=== PATIENT | female | born 1955 | race Caucasian/White ===

== ENCOUNTER 2017-12-01 09:44 | Day surgery (SDC) | payer OTHER ==
[2017-12-01] MEDS ORDERED: FAMOTIDINE 20 MG TAB PO ONE (09:49)
[2017-12-01] MEDS ORDERED: DIAZEPAM 5 MG TAB PO ONE (09:49)
[2017-12-01] MEDS ORDERED: ASPIRIN EC 325 MG TAB PO ONE (09:49)
[2017-12-01] MEDS ORDERED: diphenhydrAMINE 25 MG CAP PO ONE (09:49)
[2017-12-01] MEDS ORDERED: NS 1,000 ML IV ONE (09:49)
--- NOTE | 2017-12-01 10:12 | CPEKG ---
Heart Rate: 81 RR Interval: 741 P-R Interval: 176 QRSD Interval: 70 QT Interval: 364 QTC Interval: 423 P Bedford: 68 QRS Bedford: 14 T Wave Bedford: 20 EKG Severity - BORDERLINE ECG - EKG Impression: SINUS RHYTHM EKG Impression: BORDERLINE T ABNORMALITIES, ANTERIOR LEADS Electronically Signed By: Geoff Morris 01-Dec-2017 14:14:37
[2017-12-01 10:27] LABS: PLATELET COUNT 317 10^3/uL (150-400)
[2017-12-01 10:40] LABS: INR 0.88 (0.83-1.16); PROTIME(PATIENT) 12.2 SEC (12.0-15.0)
[2017-12-01] MEDS ORDERED: MIDAZOLAM 2 MG/2 ML VIAL ONE ×2 (12:59→13:42)
[2017-12-01] MEDS ORDERED: LIDOCAINE 1% 300 MG/30 ML SDV ONE (12:59)
[2017-12-01] MEDS ORDERED: fentaNYL 100 MCG/2 ML INJ ONE ×2 (12:59→13:42)
[2017-12-01] MEDS ORDERED: IOPAMIDOL (ISOVUE-370) 150 ML BTL IV ONE (12:59)
--- NOTE | 2017-12-01 13:29 | PDPROPOC ---
Sedation Plan of Care Sedation Plan of Care: vital signs stable, mental status noted, patient educated of risks, benefits, alternatives, patient can tolerate sedation ASA Classification: ASA 2 Planned drugs: fentanyl, midazolam Mallampati Score: Class 3 Mallampati Reference Image: Patient passed 3-3-2 rule?: Yes
--- NOTE | 2017-12-01 13:29 | PDHPUP ---
History & Physical Update H&P update statement: This history and physical update is based on an assessment of the patient which was completed after admission or registration (within 24 hours), but prior to the surgery/procedure. H&P update: H&P reviewed & patient examined, no change in patient's condition since H&P completed
[2017-12-01] MEDS ORDERED: ATROPINE SULFATE 1 MG/10 ML SYR IVP PRN (14:22)
[2017-12-01] MEDS ORDERED: ONDANSETRON 4 MG/2 ML VIAL IVP PRN (14:22)
[2017-12-01] MEDS ORDERED: NITROGLYCERIN 0.4 MG BTL SL PRN (14:22)
--- NOTE | 2017-12-01 14:29 | PDDXCAT ---
Diagnostic Cath Note - . Date: 12/01/17 Electrician Assistant: Danny Indication: other (CAD with h/o prior PCIs, chest pain, and dyspnea on exertion) - Procedure Access: right groin Procedure: left heart catheterization, coronary angiography, left ventriculogram , right heart catheterization - Materials Left Heart Cath size: 6F Left Heart Cath materials: standard multipack (JL4, JR4, pigtail) Right Heart Cath size: 7F Right Heart Cath materials: PWP catheter - Findings-Left Heart Catheterization LM: Normal. LAD: Fluoroscopy reveals a lengthy stented segment from the ostium to mid-LAD. Angiography reveals that the stented segment is widely patent. The remainder of the LAD exhibits mild irregularities. There is a bifurcating second diagonal branch with diffuse moderate disease containing areas up to 50-60% stenosis. LCX: The circumflex and its obtuse marginal branches demonstrate scattered areas of mild to moderate atherosclerosis less than 40%. RCA: Fluoroscopy demonstrates the presence of a previously stented segment in the proximal RCA. Angiography reveals that the stented segment is widely patent. The mid-RCA contains mild atherosclerosis of approximately 20-30%. EDP: 24 mmhg LVEF: 50% Wall motion: Focal anterolateral hypokinesis. - Findings-Right Heart Catheterization RA: 14 mmHg RV: 38/12 mmHg PA: 38/20/28 mmHg O2 sat 45.4% PAOP: 22 mmHg AO: 113/65/85 mmHg O2 sat 95.2% Complications: None Estimated blood loss: <50ml Closure method: manual pressure Assessment: 1) Preserved left ventricular systolic function. 2) CAD as described above. 3) Borderline hypertension. Plan: Today's angiographic images were compared to a study from October of 2015. There is no significant progression of her CAD. At this point, the worst of her atherosclerosis is confined to relatively small and diffusely diseased branch vessels. Will continue medical therapy with consideration for addition of a long -acting nitrate.
[2017-12-02] MEDS ORDERED: ISOSORBIDE MONONITRATE 30 MG TAB.SR PO SCH (09:00)
== END 2017-12-01 17:00 | disposition home or self-care (01) ==
LOC: FCATH 09:44
PROVIDERS: ATTEND Internal Medicine Interventional Cardiology
DX: I25.119 Atherosclerotic heart disease of native coronary artery with unspecified angina pectoris (principal); I12.9 Hypertensive chronic kidney disease with stage 1 through stage 4 chronic kidney disease, or unspecified chronic kidney disease; N18.3 Chronic kidney disease, stage 3 (moderate); J44.9 Chronic obstructive pulmonary disease, unspecified; E78.5 Hyperlipidemia, unspecified; J45.40 Moderate persistent asthma, uncomplicated; E66.9 Obesity, unspecified; Z68.37 Body mass index [BMI] 37.0-37.9, adult; G47.30 Sleep apnea, unspecified; F17.210 Nicotine dependence, cigarettes, uncomplicated; Z79.82 Long term (current) use of aspirin; Z82.49 Family history of ischemic heart disease and other diseases of the circulatory system; Z95.5 Presence of coronary angioplasty implant and graft
CPT/HCPCS: C1760; J1200; J1644; J2250; J3010; Q9967

== ENCOUNTER 2018-11-22 13:40 | Inpatient (IN) | payer OTHER ==
--- NOTE | 2018-11-22 14:08 | EDPHY ---
H & P Stated Complaint: Pt. states has been SOB,nausea,anemic x24hrs,has been intermittent 07/15 - Medical/Surgical History Hx Asthma: Yes Hx Chronic Respiratory Disease: Yes Hx Diabetes: No Hx Cardiac Disease: Yes Hx Renal Disease: No Hx Cirrhosis: No Hx Alcoholism: No Other PMH: PA/w stents, dystonia, HTN, PTSD/anxiety, anemia,herniated L4-L5 - Social History Smoking Status: Heavy smoker Time Seen by Provider: 11/22/18 13:43 HPI/ROS: Chief Complaint: Shortness of breath, chest tightness, anemia HPI: 63-year-old woman with a history of coronary artery disease status post stenting times x 15, COPD, diabetes, anemia with sent to the emergency department by Dr. Paz, cardiology obstructive from his office. Patient has been complaining of worsening shortness of breath the last 2 months. She saw her primary care physician was told that she was anemic. They had ordered a colonoscopy. Patient was seen by gastroenterology who said that she needed a Cardiology approval before undergoing colonoscopy. She went to see Dr. Paz today for further evaluation. He sent her directly here. Patient has been having increasing shortness of breath, worse on exertion. No cough. Does have chest tightness about 3 times a week which is worsening as well. She has been taking her diuretics as prescribed. Has had some increasing leg swelling for the last couple of years. She has significant dyspnea on exertion is no longer able to climb stairs. No palpitations, no orthopnea. Denies melena. Patient states she got quite short of breath walking from the car into the building. ROS: 10 systems were reviewed and were negative except those elements noted in the HPI. PMH: Coronary artery disease, diabetes, COPD Social History: Positive smoking, no alcohol, no recreational drug use Family History: non-contributory Physical Exam: Gen: Awake, Alert, frail, fatigued HEENT: Nose: no rhinorrhea Eyes: PERRLA, EOMI Mouth: Moist mucosa Neck: Supple, no JVD Chest: nontender, lungs clear to auscultation Heart: S1, S2 normal, no murmur Abd: Soft, non-tender, no guarding Back: no CVA tenderness, no midline tenderness Ext: 1+ pitting edema, non-tender Skin: no rash Neuro: CN II-XII intact, Sensation grossly intact, Strength 5/5 in bilateral upper and lower extremities (Ronn Coffey) Constitutional: Initial Vital Signs Temperature (C) 36.8 C 11/22/18 13:53 Heart Rate 76 11/22/18 13:53 Respiratory Rate 22 H 11/22/18 13:53 Blood Pressure 119/62 11/22/18 13:53 O2 Sat (%) 97 11/22/18 13:53 O2 Delivery Mode Room Air Allergies/Adverse Reactions: bupropion HCl [From Wellbutrin] Allergy (Verified 11/22/18 13:53) suicidal morphine Allergy (Verified 11/22/18 13:53) Other-Enter Comments sertraline HCl [From Zoloft] Allergy (Verified 11/22/18 13:53) Other-Enter Comments Sulfa (Sulfonamide Antibiotics) Allergy (Verified 11/22/18 13:53) GI upset venlafaxine HCl [From Effexor] Allergy (Verified 11/22/18 13:53) Suicidal Anti-Depresants Allergy (Uncoded 11/22/18 13:53) Suicidal Ideation Nuc Stess Test Tracer Allergy (Uncoded 11/22/18 13:53) Home Medications: Medication Instructions Recorded ALPRAZolam [Xanax 1 MG (*)] 1 mg PO TID 12/01/17 Acetamn/Diphenhydramine 500/25 1 each PO HS 12/01/17 [Tylenol PM (*)] Aspirin [Aspirin 325 mg (*)] 325 mg PO DAILY 12/01/17 Clopidogrel Bisulfate [Plavix (*)] 75 mg PO DAILY 12/01/17 Docusate Sodium [Colace 100 MG (*)] 200 mg PO HS 12/01/17 Furosemide [Lasix 20 MG (*)] 20 mg PO DAILY 12/01/17 Ipratropium [Atrovent Hfa (*)] 2 puffs IH QID PRN 12/01/17 Isosorbide Mononitrate [Imdur 30 30 mg PO DAILY #30 tab.sr 12/01/17 mg (*)] LORazepam [Ativan 2 mg tab] 2 mg PO DAILY PRN 12/01/17 Levothyroxine [Synthroid 75 mcg 75 mcg PO DAILY06 12/01/17 (*)] Metoprolol Tartrate [Lopressor 25 25 mg PO BID 12/01/17 mg (*)] Multivitamins [Multivitamin (*)] 1 each PO DAILY 12/01/17 Pantoprazole Sodium [Protonix 40mg 40 mg PO DAILY 12/01/17 (*)] Ramipril [Altace] 10 mg PO HS 12/01/17 Rosuvastatin Calcium [Crestor 40mg 40 mg PO HS 12/01/17 (*)] Seretid 125/25 Inhaler 2 puffs IH BID 12/01/17 Spironolactone [Aldactone 25 MG 25 mg PO DAILY 12/01/17 (*)] clonazePAM [klonoPIN (*)] 1 mg PO HS 12/01/17 Tramadol HCl 50 mg PO Q4-6PRN PRN #20 tablet 07/18/18 methylPREDNISolone [Medrol Dose 4 mg PO DAILY #1 each 07/18/18 Farhad] Medical Decision Making - Diagnostics EKG Interpretation: ECG time 1:53 p.m.. Sinus rhythm with a rate of 76, normal axis, normal intervals, nonspecific T-wave abnormalities in anterior leads, no acute ST or T- wave ischemic changes. (Ronn Coffey) ED Course/Re-evaluation: Patient is presenting with increasing shortness of breath for the last 2 months. She is obviously short of breath at rest here. She is not tachycardic. She is not hypoxemic. No acute changes on her ECG. There is some reports of anemia, however her H&H are 9.7 and 34 here which is not significantly changed from multiple prior tests that I have reviewed. With a history of coronary artery disease and some unstable angina features I am concerned more about a cardiac problem as opposed to a blood loss problem. Awaiting her troponin and chemistry results. Patient will require admission for further evaluation given the severity of her dyspnea. Patient's chemistry and troponin are unremarkable. I have discussed with Dr. Dietz, hospitalist. She will admit to her service for further evaluation of unstable angina. (Ronn Coffey) Other Provider: The patient was seen by the day time shift physician and arrangements have been made for transfer due to subacute accelerating angina, ACS, and the patient was to go to the hospital by ambulance. However, the nurse has informed me that she refuses such as she has issues at home that she must first take care of. Yes indeed she plans be admitted to the hospital and will follow through, hopefully. Nonetheless she simply cannot go directly to the hospital. 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 Thus she feels unable to go to the hospital immediately at this point in time. I have suggested that she make some calls to see if somebody can help out and, yes , she plans to do so calling her neice, however that will not be sufficient for her to be feeling comfortable to go to the hospital in immediately. I expressed concern that something may happen to her that she has a known cardiac condition which is of evidently worsening in the last week or 2. We discussed my worrisome concerns for her regarding sudden or collapse with stroke as well as hurting others should she drive, and she is aware such. We will continue to work with her regarding admission should she show up at the hospital and arranged for her direct admission. However, it is evident that that will whe will not kole there for as long as 6-8 hours. She has been warned. We also discussed the AC IV placement as to whether it should remain in place. (Alvarez Boss) - Data Points Laboratory Results: 11/22/18 11/22/18 14:23 14:23 POC Sodium 139 mEq/L mEq/L (135-145) POC Potassium 3.8 mEq/L mEq/L (3.3-5.0) POC Chloride 103.0 mEq/L mEq/L (97-110) POC Total CO2 30 mEq/L mEq/L (22-31) POC BUN 8 mg/dL mg/dL (7-23) POC Creatinine 1.0 mg/dL mg/dL (0.6-1.0) POC Glucose 90 mg/dL mg/dL (70-100) POC Calcium 9.8 mg/dL mg/dL (8.5-10.4) POC Troponin I 0.01 ng/mL ng/mL (0.00-0.08) Point of Care Test Results: CBC CBC Collection Date 11/22/18 CBC Collection Time 14:15 WBC 5.69 RBC 4.38 HGB 9.7 HCT 33.4 PLT 334 Neut # 2.98 Neut 52.3 LYMPH # 1.99 LYMPH 35 MCV 76.3 Chemistry 11/22/18 11/22/18 14:23 14:23 POC Sodium 139 mEq/L mEq/L (135-145) POC Potassium 3.8 mEq/L mEq/L (3.3-5.0) POC Chloride 103.0 mEq/L mEq/L (97-110) POC Total CO2 30 mEq/L mEq/L (22-31) POC BUN 8 mg/dL mg/dL (7-23) POC Creatinine 1.0 mg/dL mg/dL (0.6-1.0) POC Glucose 90 mg/dL mg/dL (70-100) POC Calcium 9.8 mg/dL mg/dL (8.5-10.4) POC Troponin I 0.01 ng/mL ng/mL (0.00-0.08) Departure - Departure Disposition: [facility] Inpatient Acute Clinical Impression: Unstable angina Condition: Fair
[2018-11-22] MEDS ORDERED: ACETAMINOPHEN 325 MG TAB PO PRN (20:28)
[2018-11-22] MEDS ORDERED: ONDANSETRON 4 MG/2 ML VIAL IVP PRN (20:28)
--- NOTE | 2018-11-22 22:26 | GHP ---
[f rep st] HISTORY AND PHYSICAL DATE OF ADMISSION: 11/22/2018 CHIEF COMPLAINT: 1. Chest pain. 2. Shortness of breath. HISTORY: Jena Mcwilliams is a 63-year-old female who started with nausea and inability to take p.o. around Thanksgiving. She had a CT scan in the emergency room that showed a thickened sigmoid colon. She was diagnosed with an iron-deficiency anemia. She had an outpatient EGD and colonoscopy schedu led. She has never had any previous endoscopy in the past. Upon arriving to the GI office they foun d out she was having chest pain and shortness of breath and would not do the colonoscopy until after cardiac clearance. She saw Dr. Paz in the office today and was sent immediately to the emergency room for more urgent evaluation of her chest pain and shortness of breath. Her chest pain is left sided under her breast, worse with pressure to the rib, nonpleuritic, continuo us. She has not noticed a change with exertion, although she has recently been immobilized due to a herniated disk. She has a pulse oximeter at home and has noticed oxygen saturations dipping into the 80s, which has never been a problem before. She has new lower extremity edema. She has PND and ort hopnea and has been sleeping on her stomach. She denies any fever or cough. She has been nauseated and has been barely able to eat anything for months. She has been living only on crushed ice and Coca Cola. Despite this, she has not lost any weight. Her stools have changed and they are now loose, b ut no blood. She has had a persistent right lower quadrant pain for the last couple of months. PAST MEDICAL HISTORY: 1. Coronary disease status post multiple stents in the past. Her last cardiac catheterization in ril 2017 showed her LAD stent was patent, 60% blockage of the 2nd diagonal, circ blockage less than 4 0%. Right coronary artery stent was patent. There was no change compared to cardiac catheterization in 2016. 2. COPD. 3. Diabetes. 4. Hypertension. 5. Asthma. 6. Obesity. 7. Obstructive sleep apnea. 2 L at night although she has never had a formal sleep study. 8. L3-4 disk herniation with ongoing back pain. 9. Iron-deficiency anemia and thickened sigmoid colon on CAT scan in June. Workup still pending . PAST SURGICAL HISTORY: Hysterectomy. MEDICATIONS: Please see computerized record for full detailed list. ALLERGIES: To bupropion, morphine, sertraline, sulfa, Effexor. SOCIAL HISTORY: She smokes a half a pack per day. No alcohol. 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 REVIEW OF SYSTEMS: Complete review of systems obtained. Review of systems negative regarding consti tutional, HEENT, GI, pulmonary, vascular, , hematology, skin, musculoskeletal, endocrine, psychiatr ic, positives as in HPI. FAMILY HISTORY: Reviewed and noncontributory to presenting complaint. PHYSICAL EXAMINATION: GENERAL: Well-developed, well-nourished female. Dyspneic with conversation. VITAL SIGNS: Temperature is 37.0, pulse 83, respirations 22, blood pressure 124/94, saturating 96% on room air. EYES: Normal conjunctivae. Pupils react to light. ENT: Normal ears and nose. Heari ng intact. Normal teeth. Oropharynx moist. NECK: Trachea midline. No thyromegaly. CHEST: Tricia l effort. Lungs are clear to auscultation bilaterally. CARDIOVASCULAR: Regular rhythm. No murmur. 2+ lower extremity edema. ABDOMEN: Soft, nontender. No hepatosplenomegaly. SKIN: Warm, dry, in tact without rash. MUSCULOSKELETAL: No cyanosis or clubbing. Strength 5/5, upper and lower extremi ties. NEUROLOGIC: Cranial nerves intact. Normal sensation to light touch. PSYCHIATRIC: Alert and oriented x3. Normal affect. Normal judgment and insight. Normal memory. LABORATORIES: White count 5.69, hematocrit 33.4, platelets 334. Sodium 139, potassium 3.8, chloride 103, bicarb 30, BUN 18, creatinine 1.0, glucose . Troponins negative. EKG viewed by me. My personal interpretation is normal sinus rhythm. Anterior T-wave inversions. This case was perso jony discussed with Dr. Cristóbal Coffey in the emergency room regarding ER course and medical records revi ew. CAT scan from June in the emergency room did have some concerning signs of sigmoid colon thi ckening, possible renal mass, ovarian cysts. ASSESSMENT AND PLAN: 1. Chest pain and shortness of breath. She did not get a chest x-ray in the emergency room. I will order that now. If this is negative, would consider a CT angiogram of the chest to rule out pulmona ry embolism. Will follow serial troponins and EKGs. She had a cardiac catheterization not that long ago in 2018 that was no change from 2016. Could consider an ischemic evaluation, but her chest pain is reproducible to palpation and atypical. A bigger issue for her, I think, is the possibility of a gastrointestinal malignancy. I think she probably needs a gastroenterology workup prior to consider ing any stent procedure. We will check an echocardiogram. 2. Iron-deficiency anemia with colonic thickening on CAT scan last June. Outpatient colonoscopy not yet done secondary to chest pain and shortness of breath. This is highly concerning for gastroi ntestinal malignancy. She has barely been able to take p.o. for months. Will add an abdominal x-ray to her chest x-ray to rule out obstruction. Would consider inpatient gastroenterology consultation. Consider repeat CT scan of the abdomen. 3. L3-4 disk herniation with ongoing low back pain. This has caused significant reduced mobility. This would put her at increased risk for pulmonary embolism and deep vein thrombosis. Could consider lower extremity ultrasounds for working up her edema. 4. Obesity. BMI 38 with probable obstructive sleep apnea. She wears 2 L at night. She has never h ad a sleep study. 5. Code status is full. 6. Admission status. Will admit to observation. Reevaluate tomorrow regarding ongoing need for hos pitalization. 7. Deep vein thrombosis prophylaxis. She is high risk. Will place her on subcu Lovenox. /[id number]/MODL
[2018-11-22] MEDS: RAMIPRIL 5 MG CAP PO SCH (23:43)
[2018-11-22] MEDS: METOPROLOL TARTRATE 25 MG TAB PO SCH (23:43)
[2018-11-22] MEDS: ACETAMN/DIPHENHYDRAMINE 500/25MG TAB PO SCH (23:43)
[2018-11-22] MEDS: DOCUSATE SODIUM 100 MG CAP PO SCH (23:43)
[2018-11-22] MEDS: PANTOPRAZOLE SODIUM 40 MG TAB PO SCH (23:43)
[2018-11-22] MEDS: clonazePAM 1 MG TAB PO SCH (23:44)
[2018-11-22] MEDS: ROSUVASTATIN CALCIUM 40 MG TAB PO SCH (23:44)
[2018-11-22] MEDS: ALPRAZolam 1 MG TAB PO SCH (23:48)
[2018-11-23 04:28] LABS: PLATELET COUNT 305 10^3/uL (150-400)
[2018-11-23] MEDS: ALPRAZolam 1 MG TAB PO SCH ×4 (08:19→20:35)
[2018-11-23] MEDS: LEVOTHYROXINE 75 MCG TAB PO SCH (08:20)
[2018-11-23] MEDS ORDERED: ENOXAPARIN 40 MG/0.4 ML SYR SC SCH (09:00)
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
[2018-11-23] MEDS: CLOPIDOGREL BISULFATE 75 MG TAB PO SCH (09:38)
[2018-11-23] MEDS: METOPROLOL TARTRATE 25 MG TAB PO SCH ×2 (09:38→22:30)
[2018-11-23] MEDS: RAMIPRIL 5 MG CAP PO SCH ×2 (09:43→22:30)
[2018-11-23] MEDS: FUROSEMIDE 20 MG TAB PO SCH (09:44)
[2018-11-23] MEDS: SPIRONOLACTONE 25 MG TAB PO SCH (09:45)
[2018-11-23] MEDS: PANTOPRAZOLE SODIUM 40 MG TAB PO SCH (09:45)
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
[2018-11-23] MEDS ORDERED: IOPAMIDOL (ISOVUE-370) 150 ML BTL IV ONE (12:51)
--- NOTE | 2018-11-23 13:11 | HOSPPROG ---
Hospitalist Progress Note Assessment/Plan: 63yo F with CAD, iron deficiency anemia here from clinic with chest discomfort. #Chest pain: Atypical. No e/o active ischemia. TTE unchanged. CTA neg for PE. - Would like to obtain lexiscan stress but patient reports allergy to nuclear tracer - Will discuss with cardiology team re: ischemic eval. If needs angiogram, would be prudent to eval source of blood loss first #Iron deficiency anemia with thickened sigmoid colon: This has not been endoscopically evaluated. H/H lower than prior. - Consult GI in AM for colonoscopy - May need prbc transfusion this admission #Multiloculated left adnexal cystic lesion: Stable since 06/2018. Previously had US that was unable to visualize. - Hold off on advanced imaging for now #CAD: LAD and RCA stents. Had [facility] 11/2017 with patent stents, moderate branch vessel disease. - Continue plavix, statin, beta bar - Taken off aspirin w/GALA #L3-4 disk herniation with low back pain: Causing significantly reduced mobility. #RML pulmonary nodule: 7mm. Needs repeat chest CT 6-12 months. #Left renal mass: Stable, most compatible with hemorrhagic cyst. No further work up needed. #Nocturnal hypoxia: Wears 2L. Needs outpatient sleep study. #HTN: Home meds #Anxiety: Continue home benzos VTE ppx: LMWH Diet: NPO at midnight for possible procedure/study Code: full Dispo: Switch to inpatient Plan for tomorrow: Discuss with GI and cardiology teams re: timing of GI and cardiac evaluations. Subjective: Attempted to see patient twice today without success. Didn't get to formally discuss/evaluate until late this afternoon. Had twinge of chest discomfort/pressure this AM but none since. This pain has been occurring for several weeks and been increasing in intensity. Has been miserable recently. Hasn't noticed any blood in stool or melena. Occasionally has RLQ pain. Objective: Vital Signs Temp Pulse Resp BP Pulse Ox 36.7 C 72 23 H 103/63 98 11/23/18 11:26 11/23/18 11:26 11/23/18 11:26 11/23/18 11:26 11/23/18 11:26 Laboratory Results 11/23/18 03:50 11/23/18 03:50 11/22/18 11/23/18 11/24/18 05:59 05:59 05:59 Intake Total 300 Output Total 400 Balance -100 - Physical Exam Constitutional: no apparent distress, obese Eyes: PERRL, anicteric sclera Ears, Nose, Mouth, Throat: moist mucous membranes, hearing normal, ears appear normal, no oral mucosal ulcers Cardiovascular: regular rate and rhythym, no murmur, rub, or gallop, edema ( trace BLE) Respiratory: no respiratory distress, no rales or rhonchi, clear to auscultation Gastrointestinal: normoactive bowel sounds, soft, non-tender abdomen, no palpable masses Genitourinary: no bladder fullness, no bladder tenderness, no renal bruits Skin: no rashes or abrasions, no fluctuance, no induration Musculoskeletal: generalized weakness Neurologic: AAOx3 Psychiatric: interacting appropriately ICD10 Worksheet Patient Problems: Problems Problem Status Onset Unstable angina Acute Right lower quadrant pain Acute Right-sided back pain Acute
--- NOTE | 2018-11-23 13:34 | ECHO ---
[email or web address] [address] Main: [phone] Echocardiography Examination Transthoracic Name: GENET NEUMANN MR#: [id number] Study Date: 11/23/2018 Study Time: 10:23 AM Date of : 1955 Age: 63 year(s) Height: 157.5 cm (62 in.) Weight: 97.52 kg (215 lb.) BSA: 1.97 m2 Gender: Female Examination: Echo Contrast: Image Quality: Adequate Rhythm: Heart Rate: BP: 101 mmHg/65 mmHg Indication: Shortness of breath Procedure Staff Referring Physician: Technology [employer] Engineering Teacher: Donna Jin [facility] Reading Physician: Terence Massey MD Requesting Provider: Indication: Shortness of breath Measurements Chambers AV/MV Label Value Normal Value Label Value Normal Value EF lower range (%) 50 % AV PGmax 8 mmHg EF upper range (%) 55 % AV PGmean 5 mmHg IVSd, 2D 1 cm (0.6cm - 1.1cm) AV Vmax 1.4 m/s LVDd, 2D 4.7 cm (3.9cm - 5.3cm) ISMAEL D (continuity eq. 2.2 cm2 LVDs, 2D 3 cm (2.1cm - 4cm) VTI) LVEF, 2D 68 % (54% - 74%) MV A Vmax 0.94 m/s LVOT PGmean 2 mmHg MV DT 173 ms LVOT Vmean 0.68 m/s MV E' lateral 0.1 m/s LVOTd 2.1 cm (1.8cm - 2cm) MV E' mean 0.09 m/s LVPWd, 2D 0.9 cm MV E' septal 0.08 m/s RVDd, 2D 2.6 cm (1.9cm - 3.8cm) MV E Vmax 0.83 m/s LA Volume, BP 43 ml (22ml - 52ml) MV E/A 0.88 LADs, 2D 3.2 cm (2.7cm - 3.8cm) MV E/E' lateral 8 LAESV index, BP 21.8 ml/m2 MV E/E' mean 9.22 RA Area 12.1 cm2 MV E/E' septal 10.3 (0.45 - 1.25) Additional Vessels MV PHT 0.05 s Label Value Normal Value MV PHT 54 ms AoAsc 2.5 cm MVA PHT 4.1 cm2 AoRoot, 2D 3 cm (1.4cm - 2.6cm) TV/PV IVC 1.3 cm (1.2cm - 2.3cm) Label Value Normal Value Patient: GENET NEUMANN Study Date: 11/23/2018 Page 1 of 2 10:23 AM PV PGmax 3 mmHg PV Vmax, Caliper 0.87 m/s (0.6m/s - 0.9m/s) Conclusions Overall Conclusions: No pericardial effusion. Preserved left ventricular systolic function ejection fraction 50-55%. Mild mitral regurgitation. Trace aortic regurgitation. Findings Technically difficult exam due to body habitus, limited windows. Left Ventricle: Left ventricle is normal in size. Low normal left ventricular systolic function. EF range is estimated at 50 % - 55 %. Left ventricle wall thickness is normal. Left ventricular diastolic function parameters are normal. No LV hypertrophy. Possible mid inferoseptal, anteroseptal hypokinesis. Right Ventricle: Normal size right ventricle. Right ventricular systolic function is normal. Left Atrium: The left atrium is normal in size. Right Atrium: The right atrium is normal in size. Mitral Valve: Mitral valve appears structurally normal. Mild mitral regurgitation. No mitral valve stenosis. Aortic Valve: Aortic leaflets are structurally normal. Trivial aortic regurgitation is present. There is no aortic stenosis. Aortic leaflets exhibit mild calcification. Tricuspid Valve: Tricuspid valve leaflets are structurally normal. Trivial tricuspid regurgitation. No tricuspid valve stenosis. Pulmonary artery pressure cannot be assessed due to inadequate TR signal. Pulmonic Valve: Pulmonic valve not well visualized. Trivial pulmonic valve regurgitation is present. Aorta: The aortic root size in 2D measures 3.0 cm. The ascending aorta measures 2.5 cm. Aorta Measurements AoRoot, 2D is 3.0 cm. IVC: The inferior vena cava is normal in size. Pericardium: No pericardial effusion. Exam Details Procedure Ordered: Echo Procedure Status: Routine study Image Quality: Adequate Facility Location: Cardiac Echo 1 (No Signature Object) Patient: GENET NEUMANN Study Date: 11/23/2018 Page 2 of 2 10:23 AM [id number]
[2018-11-23] MEDS: TROLAMINE SALICYLATE 85 GM CRTUBE TP SCH (14:09)
[2018-11-24] MEDS: ROSUVASTATIN CALCIUM 40 MG TAB PO SCH (01:42)
[2018-11-24] MEDS: clonazePAM 1 MG TAB PO SCH (01:42)
[2018-11-24] MEDS: PANTOPRAZOLE SODIUM 40 MG TAB PO SCH ×2 (01:42→08:22)
[2018-11-24] MEDS: DOCUSATE SODIUM 100 MG CAP PO SCH (01:42)
[2018-11-24] MEDS: TROLAMINE SALICYLATE 85 GM CRTUBE TP SCH ×2 (02:12→08:14)
[2018-11-24] MEDS: ACETAMN/DIPHENHYDRAMINE 500/25MG TAB PO SCH (02:12)
[2018-11-24] MEDS: SPIRONOLACTONE 25 MG TAB PO SCH (08:17)
[2018-11-24] MEDS: FUROSEMIDE 20 MG TAB PO SCH (08:17)
[2018-11-24] MEDS: CLOPIDOGREL BISULFATE 75 MG TAB PO SCH (08:22)
[2018-11-24] MEDS: LEVOTHYROXINE 75 MCG TAB PO SCH (08:22)
[2018-11-24] MEDS: ALPRAZolam 1 MG TAB PO SCH ×4 (08:22→21:50)
[2018-11-24] MEDS ORDERED: ENOXAPARIN 40 MG/0.4 ML SYR SC SCH (09:00)
--- NOTE | 2018-11-24 09:56 | PDMN ---
Medical Necessity Medical [place] [facility] [place]- , iron deficiency or unspecified A-1 day: pt presents with N- inability to take PO, CP , SOB, O2 sats dropping at home, lower extremity edema. PND, orthopnea, PMHx: CAD, mult stents in the past. COPD, DM, HTN, asthma, obesity, BERTA, back pain, iron-def. anemia thickened colon on CAT scan- H/H 8. status changed to INPT 11/23 for ongoing med nec. further monitoring , eval needed for iron def. anemia with CP.
[2018-11-24] MEDS: RAMIPRIL 5 MG CAP PO SCH (11:20)
[2018-11-24] MEDS: METOPROLOL TARTRATE 25 MG TAB PO SCH (11:22)
--- NOTE | 2018-11-24 11:22 | PDCARPN ---
Cardiology Progress Note Chief Complaint: Patient with weakness and fatigue today Assessment/Plan: Assessment: Patient is a 63 y/o female, seen by me in clinic on (11-22-18) with complaints at that time of fatigue and chest tightness (but no 'chest pain'), who continues to appreciate fatigue and weakness. History of CRI, HTN, HLP, COPD/asthma, BERTA, anxiety/depression, and CAD with PCI to LAD and RCA with notable patency by angiography in 12-13. Moderate branch vessel CAD was noted, and recommendations at that time were to continue therapy on ASA, Plavix, statins, and beta blockers (which the patient has reportedly done). No osmel chest pains have been noted today. Lethargy is more significant than that which was noted when the patient was in the clinic. CT of chest and abdomen without PE or gross pathology to the abdomen (there was adnexa mass and sigmoidal thickening - both of which were noted on prior CT). Outpatient GI plans for upper and lower endoscopy led to patient being seen by cardiology for "clearance" prior to pursuit of testing. Plan: (1) Would maintain patient on Plavix with history of CAD/PCI and noted "moderate" branch vessel disease (2) would continue therapy on Crestor for HLP, and maintain annual assessment of cholesterol and LFTs (3) Metoprolol and Ramipril should continue for HTN management assistance (4) Spironolactone should continue for further assistance with HTN and fluid management (5) Protonix for some degree of GI prophylaxis (6) Would refrain from MPI or angiography for the time being (angiography from last year with patent stents and no clear progression of the branch vessel disease) (7) Maintain supplemental oxygen use with COPD/Asthma history - consider formal sleep study to determine if CPAP/BiPAP are indicated (8) Cardiology can follow this patient while in house Subjective: patient feeling poorly today - more fatigue and lethargy is being noted today. Reviewed/Discussed With: hospitalist Objective: Vital Signs (8 Hrs) Temp Pulse Resp BP Pulse Ox 11/24/18 08:00 36.9 C 80 20 105/49 L 98 11/24/18 04:00 36.4 C 89 18 120/70 97 Intake/Output (24 Hrs) 11/23/18 11/24/18 11/25/18 05:59 05:59 05:59 Intake Total 220 Output Total 200 Balance 20 Intake: Oral (ml) 220 Output: Urine (ml) 200 Toilet 200 Other: Number of Voids Toilet 1 Result Diagrams: 11/24/18 03:43 11/24/18 03:43 EKG: sinus rhythm with low voltage Telemetry: normal sinus rhythm with heart rates of 90 bpm - Physical Exam Constitutional: WDWN, obese, other (somewhat lethargic today) Eyes: PERRL, EOMI Ears, Nose, Mouth, Throat: moist mucous membranes Cardiovascular: regular rate and rhythm, no murmurs, no rubs, no gallops, pulses symmetric bilat, No jugular vein distention Peripheral Pulses: 2+: dorsalis-pedis (R), dorsalis-pedis (L) Respiratory: clear to auscultate bilat, no crackles, reduced air movement Gastrointestinal: tenderness Skin: no rashes, no edema (patient felt that she had edema, but none was appreciated today) Musculoskeletal: no muscular tenderness Neurologic: AAOx3, CN II-XII grossly intact Psychiatric: cooperative, interactive, following commands ICD10 Worksheet Patient Problems: Problems Problem Status Onset Unstable angina Acute Right lower quadrant pain Acute Right-sided back pain Acute
--- NOTE | 2018-11-24 11:48 | CPEKG ---
Test Reason : OPEN Blood Pressure : / mmHG Vent. Rate : 075 BPM Atrial Rate : 074 BPM P-R Int : 160 ms QRS Dur : 079 ms QT Int : 414 ms P-R-T Axes : 076 023 039 degrees QTc Int : 463 ms Sinus rhythm Low voltage, extremity and precordial leads Unchanged in comparison to prior Confirmed by Pankaj Paz ([id number]) on 11/24/2018 11:47:59 AM Referred By: Page Dietz Confirmed By:Pankaj Paz
--- NOTE | 2018-11-24 13:50 | HOSPPROG ---
Hospitalist Progress Note Assessment/Plan: 63yo F with CAD, iron deficiency anemia here from clinic with chest discomfort. #Iron deficiency anemia with thickened sigmoid colon: This has not been endoscopically evaluated. H/H lower than prior but stable. C/f GI malignancy - D/w Dr Vincent of GI for consideration of colonoscopy +/- EGD - Would benefit from IV iron infusions; patient hesitant at moment #Chest pain: No e/o active ischemia. TTE unchanged. CTA neg for PE. - Cardiology consulted, no need for MPI or angiography now #Multiloculated left adnexal cystic lesion: Stable since 06/2018. Previously had US that was unable to visualize. - Hold off on advanced imaging for now #CAD: LAD and RCA stents. Had C 11/2017 with patent stents, moderate branch vessel disease. - Continue plavix, statin, beta bar - Taken off aspirin w/GALA #L3-4 disk herniation with low back pain: Causing significantly reduced mobility. #RML pulmonary nodule: 7mm. Needs repeat chest CT 6-12 months. #Left renal mass: Stable, most compatible with hemorrhagic cyst. No further work up needed. #Nocturnal hypoxia: Wears 2L. Needs outpatient sleep study. #HTN: Home meds #Anxiety: Continue home benzos VTE ppx: SCDs Diet: per GI Code: full Dispo: Inpatient Subjective: Upset that she was NPO this AM. Very tired. No blood in stool or melena. No chest discomfort or shortness of breath. Objective: Vital Signs Temp Pulse Resp BP Pulse Ox 36.7 C 91 16 130/89 H 96 11/24/18 11:23 11/24/18 11:23 11/24/18 11:23 11/24/18 11:23 11/24/18 11:23 Laboratory Results 11/24/18 03:43 11/24/18 03:43 11/23/18 11/24/18 11/25/18 05:59 05:59 05:59 Intake Total 220 Output Total 200 700 Balance 20 -700 - Physical Exam Constitutional: obese, other (appears fatigued) Eyes: PERRL, anicteric sclera Ears, Nose, Mouth, Throat: moist mucous membranes, hearing normal, ears appear normal, no oral mucosal ulcers Cardiovascular: regular rate and rhythym, no murmur, rub, or gallop, No edema Respiratory: no respiratory distress, no rales or rhonchi, clear to auscultation Gastrointestinal: normoactive bowel sounds, soft, non-tender abdomen, no palpable masses Genitourinary: no bladder fullness, no bladder tenderness, no renal bruits Skin: no rashes or abrasions, no fluctuance, no induration Musculoskeletal: generalized weakness Neurologic: AAOx3 Psychiatric: interacting appropriately ICD10 Worksheet Patient Problems: Problems Problem Status Onset Unstable angina Acute Right lower quadrant pain Acute Right-sided back pain Acute
[2018-11-24] MEDS ORDERED: PEG 3350/NA SULF,BICARB,CL/KCL (GAVILYTE-G) 4000 ML BTL PO ONE (17:33)
[2018-11-25] MEDS: RAMIPRIL 5 MG CAP PO SCH (00:11)
[2018-11-25] MEDS: ROSUVASTATIN CALCIUM 40 MG TAB PO SCH ×2 (00:11→21:26)
[2018-11-25] MEDS: clonazePAM 1 MG TAB PO SCH ×2 (00:12→21:26)
[2018-11-25] MEDS: ACETAMN/DIPHENHYDRAMINE 500/25MG TAB PO SCH ×2 (00:12→21:28)
[2018-11-25] MEDS: TROLAMINE SALICYLATE 85 GM CRTUBE TP SCH ×3 (00:12→21:31)
[2018-11-25] MEDS: PANTOPRAZOLE SODIUM 40 MG TAB PO SCH ×3 (00:12→21:28)
[2018-11-25] MEDS: METOPROLOL TARTRATE 25 MG TAB PO SCH ×3 (00:12→21:27)
[2018-11-25] MEDS: DOCUSATE SODIUM 100 MG CAP PO SCH ×2 (00:22→21:26)
--- NOTE | 2018-11-25 06:17 | GCON ---
[f rep st] CONSULTATION CHIEF COMPLAINT: 63-year-old woman with iron-deficiency anemia. HISTORY OF PRESENT ILLNESS: I have been asked to see this 63-year-old woman in consultation by Dr. Ricki Oleary for evaluation of iron deficiency anemia, and abnormal CT scan of the abdomen. The patient was admitted to the hospital on November 22. She had complained of chest pain and shortness of breath at that time. She has had problems with nausea. She had a CT scan in the emergency department that showed thickening of the sigmoid colon, and had been diagnosed previously with iron deficiency anemia. She had been scheduled for an outpatient EGD and colonoscopy; however, she has not had previous endoscopy or colonoscopy. She had arrived to the GI office and was found to have chest pain and shortness of breath. She was referred to Dr. Paz in the office and sent to the Emergency Department for evaluation of chest pain. Chest pain was left- sided of the breast, which was non pleuritic. She does have a history of coronary artery disease with multiple stents in the past. Previous cardiac catheterization in November 2017 showed LAD stent was patent with a 60% blockage in the 2nd diagonal and 40% in the circumflex. Right coronary artery with stent was patent. In the hospital, it was felt as though her chest pain was not cardiac. It was recommended that she continue on Plavix as well as lovastatin. I am asked to see patient for further evaluation of iron- deficiency anemia, and abnormality found on CT scan. PAST MEDICAL HISTORY: Remarkable for coronary artery disease, COPD, diabetes mellitus, hypertension, asthma, obesity, obstructive sleep apnea on 2 L of oxygen at night, L3-L4 disk herniation, chronic back pain, iron-deficiency anemia. PAST SURGICAL HISTORY: Remarkable for hysterectomy. ALLERGIES: To bupropion, morphine, sertraline, sulfa, and Effexor. SOCIAL HISTORY: Smokes half-pack cigarettes a day. No alcohol. 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 MEDICATIONS: Prior to admission lovastatin, docusate, clonazepam, Altace, Xanax ,pantoprazole, metoprolol, levothyroxine, Plavix, Lasix, Atrovent. REVIEW OF SYSTEMS: Negative 10 systems other than mentioned in HPI. PHYSICAL EXAM: VITAL SIGNS: 102/64, pulse 82, respiratory rate 12, 95% on 2 L oxygen, 36.8. GENERAL: A very pleasant woman sitting in a chair in no acute distress. HEENT: Normocephalic, atraumatic. EOMI. Neck supple. No cervical adenopathy. No thyromegaly. Mucous membranes moist. LUNGS: Clear. CARDIAC: Normal S1, S2 without murmur. ABDOMEN: Soft, benign, nontender. No hepatosplenomegaly. EXTREMITIES: Without clubbing, cyanosis, edema. SKIN: Warm, dry, intact. NEURO: Nonfocal. PSYCH: Alert and oriented x3 with normal affect. LABORATORY DATA: Hemoglobin 8.2, hematocrit 29.1, MCV of 77.2, platelets of 289 ,000. Serum sodium 135, potassium 4, chloride 101, CO2 of 29, BUN 20, creatinine 1.4. TSH 7.190. CT scan: No evidence of pulmonary embolus on chest CT. Abdomen CT showed left renal mass most compatible with hemorrhagic cyst. Stable sigmoid colon thickening without evidence of diverticulitis. Chronic diverticulitis or subclinical colitis many give this appearance, recommend endoscopic correlation. Stable multifocal left adnexal cyst. IMPRESSION: A 63-year-old woman with coronary artery disease, microcytic anemia , iron-deficiency anemia with thickening of the sigmoid colon, nonspecific. The patient has not had a previous endoscopy or colonoscopy. Recommend diagnostic endoscopy and small bowel biopsy to evaluate for celiac disease. Also colonoscopy to evaluate for and Clear liquid diet. GoLYTELY prep 2 to 4 L until stools are clear yellow. N.p.o. after midnight. Proceed with endoscopy and colonoscopy with anesthesia assistance. Will follow with you. /[id number]/MODL MTDD
--- NOTE | 2018-11-25 08:17 | HOSPPROG ---
Hospitalist Progress Note Assessment/Plan: 63yo F with CAD, iron deficiency anemia here from clinic with chest discomfort. #Iron deficiency anemia with thickened sigmoid colon: This has not been endoscopically evaluated. H/H lower than prior but stable. C/f GI malignancy - Colonoscopy and EGD w/anesthesia today with Dr Vincent - Consider prbc or iron infusion this admission #Chest pain: No e/o active ischemia. TTE unchanged. CTA neg for PE. - Cardiology consulted, no need for MPI or angiography #CAD: LAD and RCA stents. Had [facility] 11/2017 with patent stents, moderate branch vessel disease. - Continue plavix, statin, beta bar - Taken off aspirin w/GALA #Multiloculated left adnexal cystic lesion: Stable since 06/2018. Previously had US that was unable to visualize. - Hold off on advanced imaging for now #L3-4 disk herniation with low back pain: Causing significantly reduced mobility. #RML pulmonary nodule: 7mm. Needs repeat chest CT 6-12 months. #Left renal mass: Stable, most compatible with hemorrhagic cyst. No further work up needed. #Nocturnal hypoxia: Wears 2L. Needs outpatient sleep study. #HTN: Home meds #Anxiety: Continue home benzos VTE ppx: SCDs Diet: per GI Code: full Dispo: Inpatient Subjective: About 4/5 through colon prep. Having watery clear stools. Had one episode of very mild chest discomfort similar to prior episodes, now pain free. Objective: Vital Signs Temp Pulse Resp BP Pulse Ox 36.6 C 72 18 92/53 L 94 11/25/18 04:00 11/25/18 04:00 11/25/18 04:00 11/25/18 04:00 11/25/18 04:00 Laboratory Results 11/25/18 03:05 11/24/18 03:43 11/24/18 11/25/18 11/26/18 05:59 05:59 05:59 Intake Total 220 Output Total 200 700 Balance 20 -700 - Physical Exam Constitutional: no apparent distress, chronically ill appearing, obese Eyes: PERRL, anicteric sclera Ears, Nose, Mouth, Throat: moist mucous membranes Cardiovascular: regular rate and rhythym, no murmur, rub, or gallop, No edema Respiratory: no respiratory distress, no rales or rhonchi, clear to auscultation Gastrointestinal: normoactive bowel sounds, soft, non-tender abdomen, no palpable masses Genitourinary: no bladder fullness, no bladder tenderness, no renal bruits Skin: other (pale) Musculoskeletal: generalized weakness Neurologic: AAOx3 Psychiatric: interacting appropriately ICD10 Worksheet Patient Problems: Problems Problem Status Onset Unstable angina Acute Right lower quadrant pain Acute Right-sided back pain Acute
[2018-11-25] MEDS: LEVOTHYROXINE 75 MCG TAB PO SCH (08:23)
[2018-11-25] MEDS: ALPRAZolam 1 MG TAB PO SCH ×4 (08:28→21:26)
[2018-11-25] MEDS ORDERED: RAMIPRIL 5 MG CAP PO SCH ×2 (09:00→21:00)
--- NOTE | 2018-11-25 09:20 | PDANEPAE ---
ANE History of Present Illness EGD,colonoscopy ANE Past Medical History - Cardiovascular History Hx Hypertension: Yes Hx Arrhythmias: No Hx Chest Pain: No Hx Coronary Artery / Peripheral Vascular Disease: Yes Hx CHF / Valvular Disease: No Hx Palpitations: No Cardiovascular History Comment: s/p "15" coronary stents - Pulmonary History Hx COPD: No Hx Asthma/Reactive Airway Disease: Yes Hx Recent Upper Respiratory Infection: No Hx Oxygen in Use at Home: Yes Hx Sleep Apnea: Yes Sleep Apnea Screening Result - Last Documented: Positive Pulmonary History Comment: on home O2 2l/m QHS for about 2 years, "they think I have sleep apnea" - Neurologic History Neurologic History Comment: dystonia - Endocrine History Hx Diabetes: No Hypothyroid: Yes Obesity: severe - Renal History Hx Renal Disorders: Yes Renal History Comment: chronic kidney disease - Liver History Hx Hepatic Disorders: No - Neurological & Psychiatric Hx Hx Neurological and Psychiatric Disorders: Yes Neurological / Psychiatric History Comment: anxiety, PTSD for 32 years - GI History GERD: moderate - Chronic Pain History Chronic Pain: Yes - Surgical History Prior Surgeries: WALTER ANE Review of Systems Review of Systems: - Exercise capacity METS (RN): 4 METS ANE Patient History - Allergies Allergies/Adverse Reactions: bupropion HCl [From Wellbutrin] Allergy (Verified 11/22/18 13:53) suicidal morphine Allergy (Verified 11/22/18 13:53) Other-Enter Comments sertraline HCl [From Zoloft] Allergy (Verified 11/22/18 13:53) Other-Enter Comments Sulfa (Sulfonamide Antibiotics) Allergy (Verified 11/22/18 13:53) GI upset venlafaxine HCl [From Effexor] Allergy (Verified 11/22/18 13:53) Suicidal Anti-Depresants Allergy (Uncoded 11/22/18 13:53) Suicidal Ideation Nuc Stess Test Tracer Allergy (Uncoded 11/22/18 13:53) - Home Medications Home Medications: ALPRAZolam [Xanax 1 MG (*)] 1 mg PO QID 12/01/17 [Last Taken 11/22/18] Acetamn/Diphenhydramine 500/25 [Tylenol PM (*)] 1 each PO HS 12/01/17 [Last Taken 11/21/18] Clopidogrel Bisulfate [Plavix (*)] 75 mg PO DAILY 12/01/17 [Last Taken 11/22/18] Docusate Sodium [Colace 100 MG (*)] 200 mg PO HS 12/01/17 [Last Taken 11/21/18] Furosemide [Lasix 20 MG (*)] 20 mg PO DAILY 12/01/17 [Last Taken 11/22/18] Ipratropium [Atrovent Hfa (*)] 2 puffs IH QID PRN 12/01/17 [Last Taken Unknown] Levothyroxine [Synthroid 75 mcg (*)] 75 mcg PO DAILY06 12/01/17 [Last Taken ] Metoprolol Tartrate [Lopressor 25 mg (*)] 25 mg PO BID 12/01/17 [Last Taken ] Pantoprazole Sodium [Protonix 40mg (*)] 40 mg PO BID 12/01/17 [Last Taken ] Ramipril [Altace] 10 mg PO BID 12/01/17 [Last Taken 11/22/18] Rosuvastatin Calcium [Crestor 40mg (*)] 40 mg PO HS 12/01/17 [Last Taken ] Spironolactone [Aldactone 25 MG (*)] 25 mg PO DAILY 12/01/17 [Last Taken ] clonazePAM [klonoPIN (*)] 1 mg PO HS 12/01/17 [Last Taken 11/21/18] Trolamine Salicylate [Aspercreme] 1 chyna TP BID 11/22/18 [Last Taken Unknown] - NPO status NPO Since - Liquids (Date): 11/25/18 NPO Since - Liquids (Time): 00:30 NPO Since - Solids (Date): 11/24/18 NPO Since - Solids (Time): 18:00 - Anes Hx Anes Hx: no prior problems - Smoking Hx Smoking Status: Heavy smoker - Alcohol Use Alcohol Use: None - Family Anes Hx Family Anes Hx: none ANE Labs/Vital Signs - Labs Result Diagrams: 11/25/18 03:05 11/24/18 03:43 - Vital Signs Blood Pressure: 103/64 Heart Rate: 72 Respiratory Rate: 23 O2 Sat (%): 96 Height: 157.48 cm Weight: 94.4 kg ANE Physical Exam - Airway Neck exam: FROM Mallampati Score: Class 3 Mouth exam: normal dental/mouth exam (Upper front caps) - Pulmonary Pulmonary: clear to auscultation - Cardiovascular Cardiovascular: regular rate and rhythym - ASA Status ASA Status: III ANE Anesthesia Plan Anesthesia Plan: GA with mask Total IV Anesthesia: Yes
[2018-11-25] MEDS ORDERED: MIDAZOLAM 2 MG/2 ML VIAL IVP ONE (09:38)
[2018-11-25] MEDS ORDERED: MIDAZOLAM 2 MG/2 ML VIAL ONE (09:38)
[2018-11-25] MEDS ORDERED: fentaNYL 100 MCG/2 ML INJ ONE (09:42)
[2018-11-25] MEDS ORDERED: PROPOFOL 200 MG/20 ML VIAL ONE ×3 (09:42→10:25)
--- NOTE | 2018-11-25 09:58 | GIREPORT ---
[facility] - Endoscopy Department Patient Name: Jena Mcwilliams Procedure Date: 11/25/2018 9:35 AM Patient Type: Inpatient Attending MD/ ER Physician: Abiodun Vincent MD Procedure: Upper GI endoscopy Indications: Iron deficiency anemia Providers: Abiodun Vincent MD Medicines: Propofol per Anesthesia Complications: No immediate complications. Description of Procedure: After obtaining informed consent, the endoscope was passed under direct vision. Throughout the procedure, the patient's blood pressure, pulse, and oxygen saturations were monitored continuously. The Endoscope was intro duced through the mouth, and advanced to the second part of duodenum. The [facility] er GI endoscopy was accomplished without difficulty. The patient tolerated th e procedure well. Findings: The examined esophagus was normal. Localized mild inflammation characterized by erosions and erythema was found in the gastric antrum. Biopsies were taken with a cold forceps for hist ology. The examined duodenum was normal. Biopsies for histology were taken wit h a cold forceps for evaluation of celiac disease. Estimated Blood Loss: Estimated blood loss: none. Post Op Diagnosis: - Normal esophagus. - Gastritis. Biopsied. - Normal examined duodenum. Biopsied. Recommendation: - Await pathology results. - Perform a colonoscopy today. - Thank you for allowing me to participate in the care of your patient. Attending Participation: I personally performed the entire procedure. Abiodun Vincent MD Abiodun Vincent MD 11/25/2018 9:57:41 AM This report has been signed electronicallyStbre Vincent MD Number of Addenda: 0 Note Initiated On: 11/25/2018 9:35 AM [email or web address]
[2018-11-25] MEDS ORDERED: NALOXONE HCL 0.4 MG/ML INJ IVP PRN (10:41)
[2018-11-25] MEDS ORDERED: fentaNYL 100 MCG/2 ML INJ IVP PRN (10:41)
--- NOTE | 2018-11-25 10:51 | GIREPORT ---
[facility] - Endoscopy Department Patient Name: Jena Mcwilliams Procedure Date: 11/25/2018 9:36 AM Patient Type: Inpatient Attending MD/ ER Physician: Abiodun Vincent MD Procedure: Colonoscopy Indications: Iron deficiency anemia Providers: Abiodun Vincent MD Medicines: Propofol per Anesthesia Complications: No immediate complications. Description of Procedure: After obtaining informed consent, the scope was passed under direct vis ion. Throughout the procedure, the patient's blood pressure, pulse, and oxyg en saturations were monitored continuously. The Colonoscope with irrigatio n channel was introduced through the anus and advanced to the cecum, identified by appendiceal orifice and ileocecal valve. The colonoscopy was performed without difficulty. The patient tolerated the procedure well. The quality of the bowel preparation was fair, there was residual stool throughout the colon. The ileocecal valve and the rectum were photograp hed. Findings: Multiple small and large-mouthed diverticula were found in the sigmoid colon. A 7 mm polyp was found in the recto-sigmoid colon. The polyp was flat. The polyp was removed with a cold snare. Resection and retrieval were compl ete. Three flat polyps were found from the sigmoid to the splenic flexure. T he polyps were 6 to 7 mm in size. These polyps were removed with a cold sn are and biopsy. Resection and retrieval were complete. Due to body habitus, unable to intubate cecal cap. Grossly no lesions b ut cannot fully exclude lesions/polyps of the cecal cap. No additional abnormalities were found on retroflexion. Estimated Blood Loss: Estimated blood loss: none. Post Op Diagnosis: - Diverticulosis in the sigmoid colon. - One 7 mm polyp at the recto-sigmoid colon, removed with a cold snare. Resected and retrieved. - Three 6 to 7 mm polyps from sigmoid to splenic flexure, removed with a cold snare. Resected and retrieved. Recommendation: - High fiber diet. - Await pathology results. - Continue present medications. - Repeat colonoscopy in 3 - 6 months for surveillance of multiple polyp s. - If duodenal biopsies are unremarkable and source of anemia not identi fied then recommend VCE as an outpatient. - Thank you for allowing me to participate in the care of your patient. Attending Participation: I personally performed the entire procedure. Abiodun Vincent MD Abiodun Vincent MD 11/25/2018 10:50:46 AM This report has been signed electronicallyStbre Vincent MD Number of Addenda: 0 Note Initiated On: 11/25/2018 9:36 AM Total Procedure Duration Time 0 hours 41 minutes 8 seconds [email or web address]
--- NOTE | 2018-11-25 11:27 | POSTANESTH ---
Post Anesthetic Evaluation Cardiovascular Status: Similar to Pre-Op Cond Respiratory Status: Similar to Pre-op Cond. Level of Consciousness/Mental Status: Can Participate in Eval Pain Control: Adequate, Prn Tx Ordered Nausea/Vomiting Control: Adequate, Prn Tx Ordered Complications Possibly Related to Anesthesia: None Noted
[2018-11-25] MEDS: SPIRONOLACTONE 25 MG TAB PO SCH (13:24)
[2018-11-25] MEDS: CLOPIDOGREL BISULFATE 75 MG TAB PO SCH (13:24)
[2018-11-25] MEDS: FUROSEMIDE 20 MG TAB PO SCH (13:25)
--- NOTE | 2018-11-25 15:37 | ASMTCMCOM ---
CM Note CM Note Notes: Patient went for colonoscopy today and had 4 polyps removed. PT is recommending home while OT is recommending home care. Patient getting transfuse 1 unit PRBC given persistant dyspnea. Patient may be ready for d/c on Monday if she is stable. Patient is current with [facility] for PT,RN, and SW. CM will follow. Date Signed: 11/25/2018 03:36 PM Electronically Signed By:Shavonne Escobar LCSW
[2018-11-26] MEDS: LEVOTHYROXINE 75 MCG TAB PO SCH (03:40)
[2018-11-26] MEDS: ALPRAZolam 1 MG TAB PO SCH ×3 (06:36→11:31)
[2018-11-26] MEDS: PANTOPRAZOLE SODIUM 40 MG TAB PO SCH (10:08)
[2018-11-26] MEDS: METOPROLOL TARTRATE 25 MG TAB PO SCH (10:08)
[2018-11-26] MEDS: FUROSEMIDE 20 MG TAB PO SCH (10:08)
[2018-11-26] MEDS: CLOPIDOGREL BISULFATE 75 MG TAB PO SCH (10:08)
[2018-11-26] MEDS: SPIRONOLACTONE 25 MG TAB PO SCH (10:10)
[2018-11-26] MEDS: TROLAMINE SALICYLATE 85 GM CRTUBE TP SCH (10:11)
--- NOTE | 2018-11-26 11:05 | PDDCSUM ---
Discharge Summary Discharge Summary: Date of Admission: 11/22/2018 Date of Discharge: 11/26/2018 Consultants: cardiology, gastroenterology Studies: TTE, CTA chest, CT abdomen/pelvis Procedures: EGD, colonoscopy Discharge Diagnoses: 1. Dyspnea 2. Iron deficiency anemia of unclear etiology 3. Gastritis 4. CAD s/p PCI 5. Multiloculated left adnexal cyst (stable since 06/2018) 6. L3-4 disk herniation 7. RML 7mm pulmonary nodule 8. Left renal mass c/w hemorrhagic cyst 9. Ongoing tobacco use 10. Nocturnal hypoxia (2L) 11. HTN 12. Anxiety on benzodiazepines Brief Hospital Course: 63yo F with CAD ([facility] 11/2017 with patent LAD and RCA stents and moderate branch vessel disease), L3-4 disk herniation leading to significant immobility, and iron deficiency anemia of unknown etiology presented from cardiology clinic with dyspnea and chest discomfort. Serial troponin/ecg were negative for ischemia or injury. TTE was normal and without wall motion abnormalities. CTA chest was negative for PE. Cardiology was consulted; they did not feel that additional coronary ischemic evaluation was warranted at this time given her angiogram within 1 year. Gastroenterology was then consulted. She has had a slowly down-trending iron deficiency anemia for the last several years. A CT of her abdomen from 06/2018 showed a thickened sigmoid colon. A CT of her abdomen during this admission showed stable sigmoid thickening. GI performed upper and lower endoscopies which revealed gastritis and several polyps, which were biopsied, but no source of bleeding was identified. Duodenal biopsies were also taken to eval for celiac disease. She was continued on her PPI BID. She declined oral iron supplementation. She did receive 1 unit of packed red blood cells with appropriate response (hgb 8.2->9.3) but her dyspnea did not really change. GI recommends video capsule endoscopy and repeat colonoscopy in 3-6 months if etiology of iron deficiency is unclear. Of note, she continues to smoke about 1/2 pack of cigarettes/day. I recommend that she have PFTs and possible pulmonary referral as an outpatient. She was not requiring supplemental oxygen at time of discharge. She was set up with home health RN/OT/social human services assistants. Medications: Please refer to EMR for complete list. No changes were made. Follow Up Plan: 1. Needs PFTs 2. Follow up duodenal and colon polyp biopsies. If etiology of iron deficiency remains elusive, will need video capsule endoscopy and repeat colonoscopy 3. Consider re-evaluation of left adnexal cyst with pelvic ultrasound 4. Repeat chest CT in 6-12 months to monitor RML nodule 5. Needs polysomnography 6. Consider outpatient IV iron infusions Physical Exam: Vitals reviewed, normotensive. Alert and oriented, rrr, lungs clear, abdomen soft, trace edema in BLE, no rashes.
--- NOTE | 2018-11-26 11:05 | PDIAF ---
- Diagnosis Code Status: Full Code - Medication Management Discharge Medications: electronically signed and located in the Home Medication List. PICC Care - Routine: N/A - Orders Services needed: Home Care, Registered Nurse, Master [employer]cu Staff Nurse, Occupational Therapy Home Care Face to Face: I certify that this patient was under my care and that I had the required ihth-rz-jeef encounter meeting the encounter requirements on the discharge day. My findings support the fact that the patient is homebound as defined in Home Care Face to Face Continued: CMS Chapter 7 Medicare Benefits Manual 30.1.1 , The condition of the patient is such that there exists a normal inability to leave home and consequently, leaving home would require a considerable and taxing effort. Additional Instructions: No medications changes. Continue to take your protonix 40mg twice daily. I recommend you get formal pulmonary function testing and possibly referral to a manager bakery. Follow up with Dr Vincent in gastroenterology for video capsule endoscopy. See Dr Cazares in 1-2 weeks to discuss your biopsy results from this hospitalization. - Follow Up Care Current Providers and Referrals: Jena Cazares MD [Primary Care Provider] - As per Instructions
[2018-11-26 11:23] VITALS: BP 107/78
--- NOTE | 2018-11-26 11:44 | ASMTDCNOTE ---
Case Management Discharge Discharge Order Complete? Answers: Yes Patient to Obtain Answers: Independently Medications Transportation Arranged Answers: Taxi - Self Pay EMTALA Complete Answers: No Case Management Transport Answers: No Form Complete Faxed Final Orders Answers: Yes Agency/Facility Transfer Answers: Yes Report Printed & Faxed to Receiving Agency Family Notified Answers: No Discharge Comments Notes: Patients case discussed in treatment rounds. Patient is being discharged today. [facility] was notified to resume care. Patient is paying for own transport home via cab. Plan: [facility] OT, RN, Date Signed: 11/26/2018 11:43 AM Electronically Signed By:Karol Llamas
--- NOTE | 2018-11-29 08:24 | CPEKG ---
Test Reason : OPEN Blood Pressure : / mmHG Vent. Rate : 076 BPM Atrial Rate : 076 BPM P-R Int : 160 ms QRS Dur : 070 ms QT Int : 376 ms P-R-T Axes : 068 013 031 degrees QTc Int : 423 ms Sinus rhythm Low voltage, precordial leads Nonspecific T abnormalities, anterior leads Confirmed by Ronn Coffey ([id number]) on 11/29/2018 8:24:51 AM Referred By: PHYSICIAN ED Confirmed By:Ronn Coffey
== END 2018-11-26 12:16 | disposition home health service (06) | DRG 349 ==
LOC: CED 13:40 → CEDHOLD 14:48 → F2W 20:25 → OBSVTOIN 11-23 17:48
PROVIDERS: ADMIT Internal Medicine; ATTEND Internal Medicine
PROC: 0DB68ZX Excision of Stomach, Via Natural or Artificial Opening Endoscopic, Diagnostic (ICD-10-PCS; principal; 2018-11-25 10:30)
PROC: 0DBNFZZ Excision of Sigmoid Colon, Via Natural or Artificial Opening With Percutaneous Endoscopic Assistance (ICD-10-PCS; principal; 2018-11-25 10:30)
PROC: 0DB98ZX Excision of Duodenum, Via Natural or Artificial Opening Endoscopic, Diagnostic (ICD-10-PCS; principal; 2018-11-25 10:30)
PROC: 30233N1 Transfusion of Nonautologous Red Blood Cells into Peripheral Vein, Percutaneous Approach (ICD-10-PCS; 2018-11-25 10:30)
DX: K29.50 Unspecified chronic gastritis without bleeding (principal); R06.00 Dyspnea, unspecified; R09.02 Hypoxemia; D50.9 Iron deficiency anemia, unspecified; M51.26 Other intervertebral disc displacement, lumbar region; N83.292 Other ovarian cyst, left side; R91.1 Solitary pulmonary nodule; N28.1 Cyst of kidney, acquired; I10 Essential (primary) hypertension; F41.9 Anxiety disorder, unspecified; J44.9 Chronic obstructive pulmonary disease, unspecified; J45.909 Unspecified asthma, uncomplicated; G47.33 Obstructive sleep apnea (adult) (pediatric); E66.9 Obesity, unspecified; I25.10 Atherosclerotic heart disease of native coronary artery without angina pectoris; Z68.38 Body mass index [BMI] 38.0-38.9, adult; Z72.0 Tobacco use; Z95.5 Presence of coronary angioplasty implant and graft; D12.5 Benign neoplasm of sigmoid colon
CPT/HCPCS: 80048-ER; 84484-ER; 85025-QW-ER; 97116-GP; 97161-GP; 97166-GO; 97535-GO; 99285-ER; G0378; J1650; J2250; J2704; J3010; P9016; Q9967